=== PATIENT | male | born 1980 | race Caucasian/White ===

== ENCOUNTER 2024-02-17 14:02 | Emergency (ER) | payer OTHER ==
[~2024-02-17] VITALS: Ht 165.1 cm; Wt 90.0 kg
[2024-02-17 14:05] VITALS: O2SAT 98
[2024-02-17 14:30] LABS: BASOPHILS % 0.7 % (0.0-2.0); HEMATOCRIT. 44.4 % (42.0-52.0); HEMOGLOBIN. 15.2 g/dL (14.0-18.0); MEAN CORPUSCULAR HEMOGLOBIN 30.6 pg (28.0-32.0); MEAN CORPUSCULAR HGB CONC 34.4 g/dL (31.0-37.0); MEAN CORPUSCULAR VOLUME 89.1 fL (80.0-94.0); MEAN PLATELET VOLUME 8.1 fl (7.4-10.4); MONOCYTES % 7.7 % (2.0-8.0); NEUTROPHILS % 80.6 % (40.0-76.0); PLATELET 310 x1000/uL (130-400); RED BLOOD CELL COUNT 4.98 mill/uL (4.7-6.1); RED CELL DISTRIBUTION WIDTH 13.8 % (11.6-14.6); WHITE BLOOD COUNT 5.9 x1000/uL (4.5-11.0)
[2024-02-17 14:38] LABS: CHLORIDE 107 mEq/L (98-107); POTASSIUM 3.4 mEq/L (3.5-5.1); SODIUM 138 mEq/L (136-145)
[2024-02-17 14:39] LABS: CARBON DIOXIDE 24 mEq/L (21-32)
[2024-02-17 14:40] LABS: CALCIUM 9.4 mg/dL (8.7-10.4)
[2024-02-17 14:44] LABS: CREATININE 0.8 mg/dL (0.6-1.3); GLUCOSE 100 mg/dL (70-105); HCG SCREEN NEGATIVE
[2024-02-17 14:45] LABS: UREA NITROGEN BLOOD 13 mg/dL (9-23)
[2024-02-17 14:50] LABS: TROPONIN I HIGH SENSITIVITY < 4 ng/L (3.0-53)
[2024-02-17] MEDS: IBUPROFEN 600MG TABLET PO ONE (14:54)
[2024-02-17] MEDS: ONDANSETRON 4MG ODT PO ONE (14:55)
[2024-02-17 17:43] LABS: TROPONIN I HIGH SENSITIVITY < 4 ng/L (3.0-53)
[2024-02-17 18:27] VITALS: BP 125/82; PULSE 90; RESP 15; TEMP 36.89184; O2SAT 98
== END 2024-02-17 18:42 | disposition home or self-care (01) ==
LOC: ER 14:02
DX: R07.89 Other chest pain (principal); R06.02 Shortness of breath; J45.909 Unspecified asthma, uncomplicated
CPT/HCPCS: 99285; 71045; 80048; 84703; 83880; 85025; 84484; 36415; 93005; Q0162